=== PATIENT | female | born 1990 | race Caucasian/White ===

== ENCOUNTER 2017-02-22 21:24 | Emergency (ER) | payer OTHER ==
[~2017-02-22] VITALS: Ht 160 cm; Wt 99.8 kg
[~2017-02-22 21:24] MED LIST: MEDR150V IM
[2017-02-22 21:39] LABS: BILIRUBIN,URINE NEGATIVE (NEG); GLUCOSE,URINE NEGATIVE (NEG); NITRITE,URINE NEGATIVE (NEG); PH,URINE 5.5; PROTEIN,URINE NEGATIVE (NEG-TRACE)
[2017-02-22] MEDS ORDERED: 0.9 % SODIUM CHLORIDE 10 ML DISP.SYRIN. IV PRN (21:45)
[2017-02-22 21:47] LABS: BACTERIA,URINE FEW /HPF (0-FEW); RBC,URINE 0 /HPF (0-2); SQUAMOUS EPITHELIAL CELL,UR FEW /LPF; WBC,URINE >40 /HPF (0-4)
[2017-02-22 21:49] LABS: BASO % 0 % (0-3); EOS % 1 % (0-3); HEMATOCRIT 44.2 % (36.0-47.0); HEMOGLOBIN 15.2 g/dL (12.0-15.5); LYMPH # 2.3 x10^3/uL (1.0-4.8); LYMPH % 19 % (24-48); MEAN CORPUSCULAR HEMOGLOBIN 30 pg (25-35); MEAN CORPUSCULAR HGB CONC 34 g/dL (31-37); MEAN CORPUSCULAR VOLUME 86 fL (79-100); MONO % 7 % (0-9); NEUT % 73 % (31-73); PLATELET COUNT 361 x10^3/uL (140-400); RED BLOOD COUNT 5.13 x10^6/uL (3.50-5.40); RED CELL DISTRIBUTION WIDTH 13.7 % (11.5-14.5); WHITE BLOOD COUNT 12.3 x10^3/uL (4.0-11.0)
[2017-02-22] MEDS ORDERED: IV NORMAL SALINE 1000ML BAG 1,000 ML IV SCH (22:00)
--- NOTE | 2017-02-22 22:00 | PHYS DOC ---
Past Medical History Past Medical History: Constipation, Other Additional Past Medical Histor: kidney stone, internal hemroids Past Surgical History: Other Additional Past Surgical Histo: kidney stone removal Alcohol Use: None Drug Use: None Adult General Chief Complaint Chief Complaint: ABDOMINAL PAIN HPI HPI Patient is a 26 year old who presents with L sided abdominal pain and L flank pain with urinary urgency. Pt states started yesterday with urgency and mild flank pain then today pain front of abdomen. Pt denies dysuria or F/C Pt states pain similar to previous kidney stone pain. Pain started today at approx 6pm with waxing,waning feeling. started at 7/10 and now 4/10. Last kidney stone was on R and last episode was approx 3-4 yrs ago and had to have lithotripsy. Mild vaginal discharge . No N/V and last BM was today, no blood no melena Pt states last menstural period was apporx 2 years ago when was on Depo abut no Depo for past 4 months. Review of Systems Review of Systems Constitutional: Denies fever or chills Eyes: Denies change in visual acuity, redness, or eye pain HENT: Denies nasal congestion or sore throat Respiratory: Denies cough or shortness of breath Cardiovascular: No additional information not addressed in HPI GI: +abdominal pain, no nausea, vomiting, bloody stools or diarrhea [] : Denies dysuria or hematuria but having urinary urgency Musculoskeletal: Denies back pain or joint pain Integument: Denies rash or skin lesions Neurologic: Denies headache, focal weakness or sensory changes Current Medications Current Medications Current Medications Medications (Trade) Dose Ordered Sig/Cheo Start Time Stop Time Status Last Admin Dose Admin Ceftriaxone Sodium 1 gm/ Sodium Chloride 50 ml @ 100 mls/hr Q24H 02/23/17 22:00 02/23/17 22:00 DC Ceftriaxone Sodium 50 ml @ 100 mls/hr 1X ONCE 02/22/17 22:30 02/22/17 22:59 DC 02/22/17 22:38 100 MLS/HR Info (Do NOT chart on this entry -- for MONITORING) 1 each PRN DAILY PRN 02/22/17 22:30 02/23/17 01:10 DC Iohexol (Omnipaque 300 Mg/ml) 75 ml 1X ONCE 02/22/17 23:00 02/22/17 23:01 DC 02/22/17 22:43 75 ML Sodium Chloride (Normal Saline Flush) 10 ml QSHIFT PRN 02/22/17 21:45 02/23/17 01:10 DC Allergies Allergies Allergies Coded Allergies Type Severity Reaction Last Updated Verified ibuprofen Allergy Intermediate Swelling 03/14/14 Yes Physical Exam Physical Exam Constitutional: Well developed, well nourished, no acute distress, non-toxic appearance. HENT: Normocephalic, atraumatic, bilateral external ears normal, oropharynx moist, no oral exudates, nose normal. Eyes: PERRL, EOMI, conjunctiva normal, no discharge. Neck: Normal range of motion, no tenderness, supple, no stridor. Cardiovascular:Heart rate regular rhythm, no murmur Lungs & Thorax: Bilateral breath sounds clear to auscultation Abdomen: Bowel sounds normal, soft, tender LLQ, suprapubic and mild RLQ, no guarding no rebound, no masses, no pulsatile masses. Skin: Warm, dry, no erythema, no rash. Back: No tenderness, no CVA tenderness. Extremities: No tenderness, no cyanosis, no clubbing, ROM intact, no edema. Pelvic exam--normal external vaginal area, no bleeding minimal vaginal discharge , os closed, bimanual no CMT, no adenexal tenderness or masses palpated Current Patient Data Vital Signs Vital Signs Date Time Temp Pulse Resp B/P (MAP) Pulse Ox O2 Delivery O2 Flow Rate FiO2 02/23/17 00:30 94 107/53 (71) 99 Room Air 02/22/17 22:52 16 02/22/17 21:30 99.1 99.1 Lab Values Laboratory Tests Test 02/22/17 20:40 02/22/17 21:28 02/22/17 21:38 02/22/17 22:07 POC Urine HCG, Qualitative Hcg negative (Negative) Urine Collection Type Void Urine Color Yellow Urine Clarity Clear Urine pH 5.5 Urine Specific [place] >=1.030 Urine Protein Negative mg/dL (NEG-TRACE) Urine Glucose (UA) Negative mg/dL (NEG) Urine Ketones (Stick) Negative mg/dL (NEG) Urine Blood Moderate (NEG) Urine Nitrite Negative (NEG) Urine Bilirubin Negative (NEG) Urine Urobilinogen Dipstick 1.0 mg/dL (0.2 mg/dL) Urine Leukocyte Esterase Moderate (NEG) Urine RBC 0 /HPF (0-2) Urine WBC >40 /HPF (0-4) Urine Squamous Epithelial Cells Few /LPF Urine Bacteria Few /HPF (0-FEW) Urine Hyaline Casts Occasional /HPF Urine Mucus Mod /LPF White Blood Count 12.3 x10^3/uL (4.0-11.0) H Red Blood Count 5.13 x10^6/uL (3.50-5.40) Hemoglobin 15.2 g/dL (12.0-15.5) Hematocrit 44.2 % (36.0-47.0) Mean Corpuscular Volume 86 fL (79-100) Mean Corpuscular Hemoglobin 30 pg (25-35) Mean Corpuscular Hemoglobin Concent 34 g/dL (31-37) Red Cell Distribution Width 13.7 % (11.5-14.5) Platelet Count 361 x10^3/uL (140-400) Neutrophils (%) (Auto) 73 % (31-73) Lymphocytes (%) (Auto) 19 % (24-48) L Monocytes (%) (Auto) 7 % (0-9) Eosinophils (%) (Auto) 1 % (0-3) Basophils (%) (Auto) 0 % (0-3) Neutrophils # (Auto) 8.9 x10^3uL (1.8-7.7) H Lymphocytes # (Auto) 2.3 x10^3/uL (1.0-4.8) Monocytes # (Auto) 0.9 x10^3/uL (0.0-1.1) Eosinophils # (Auto) 0.1 x10^3/uL (0.0-0.7) Basophils # (Auto) 0.0 x10^3/uL (0.0-0.2) Sodium Level 142 mmol/L (136-145) Potassium Level 3.8 mmol/L (3.5-5.1) Chloride Level 106 mmol/L (98-107) Carbon Dioxide Level 25 mmol/L (21-32) Anion Gap 11 (6-14) Blood Urea Nitrogen 13 mg/dL (7-20) Creatinine 0.9 mg/dL (0.6-1.0) Estimated GFR (Cockcroft-Gault) 76.9 BUN/Creatinine Ratio 14 (6-20) Glucose Level 86 mg/dL (70-99) Calcium Level 9.5 mg/dL (8.5-10.1) Total Bilirubin 0.2 mg/dL (0.2-1.0) Aspartate Amino Transferase (AST) 27 U/L (15-37) Alanine Aminotransferase (ALT) 34 U/L (14-59) Alkaline Phosphatase 71 U/L (46-116) Total Protein 8.0 g/dL (6.4-8.2) Albumin 4.0 g/dL (3.4-5.0) Albumin/Globulin Ratio 1.0 (1.0-1.7) Lipase 204 U/L (73-393) Chlamydia DNA Probe Negative (Negative) Neisseria gonorrhoeae DNA Probe Negative (Negative) Laboratory Tests 02/22/17 21:38 Laboratory Tests 02/22/17 21:38 Microbiology 02/22/17 Urine Culture - Preliminary, Resulted 02/22/17 Urine Culture Result 1 (KARLY) - Preliminary, Resulted EKG EKG [] Radiology/Procedures Radiology/Procedures PATIENT: PEGGY HALE ACCOUNT: [id number] : 1990 LOCATION: ER AGE: 26 SEX: F EXAM STATUS: REG ER ORD. PHYSICIAN: CARY BEVERLY MD REASON: abdominal pain L mid and L flank PROCEDURE: CT ABD PELV W/ IV CONTRST ONLY CT SCAN OF THE ABDOMEN AND PELVIS WITH IV CONTRAST. History: Left-sided abdominal and flank pain worsening since yesterday Comparison:None. Procedure: Contiguous axial images of the abdomen and pelvis were performed after the administration of 75 cc of Omnipaque 300 IV contrast and without oral contrast. CT Abdomen with contrast: Findings: Liver: Unremarkable Spleen: Unremarkable Pancreas: Unremarkable Adrenal Glands: Unremarkable Kidneys: Unremarkable There are multiple small mesenteric lymph nodes in the right lower quadrant. There is no free air. There is no free fluid. Impression: No acute findings. End Impression CT Pelvis with Contrast: Findings: The urinary bladder is collapsed and not well evaluated. There is apparent moderate wall thickening. There is no free fluid. There is no lymphadenopathy. The appendix is normal. Impression: 1. Moderate wall thickening of the bladder could be nondistention or cystitis. 2. Mild mesenteric lymphadenopathy in the right lower quadrant could be secondary to lymphadenitis. PQRS Compliance Statement: One or more of the following individualized dose reduction techniques were utilized for this examination: 1. Automated exposure control 2. Adjustment of the mA and/or kV according to patient size 3. Use of iterative reconstruction technique Electronically signed by: Rm Carter III, MD (02/22/2017 11:15 PM) [facility] DICTATED and SIGNED BY: RM CARTER III, MD DATE: 02/22/17 8627 CC: CARY BEVERLY MD; TITO MAR APRN ~ [] Course & Med Decision Making Course & Med Decision Making Pertinent Labs and Imaging studies reviewed. (See chart for details) CT --normal appendix and no stone or hydro, thickened bladder wall consistent with clinical UTI Discussed findings with pt and need for antibiotic and close follow up Pt received 1 gm IV rocephin, no vomiting Dragon Disclaimer Dragon Disclaimer This electronic medical record was generated, in whole or in part, using a voice recognition dictation system. Departure Departure Impression: Primary Impression: UTI (urinary tract infection) Additional Impression: Abdominal pain Disposition: 01 HOME, SELF-CARE Condition: STABLE Referrals: TITO MAR APRN (PCP) Problem Qualifiers Primary Impression: UTI (urinary tract infection) Encounter type: initial encounter Additional Impression: Abdominal pain Abdominal location: lower abdomen, unspecified Qualified Codes: R10.30 - Lower abdominal pain, unspecified CARY BEVERLY MD Feb 22, 2017 22:00
[2017-02-22 22:03] LABS: CALCIUM 9.5 mg/dL (8.5-10.1); CREATININE 0.9 mg/dL (0.6-1.0); GFR 76.9; POTASSIUM 3.8 mmol/L (3.5-5.1)
[2017-02-22 22:09] LABS: TOTAL BILIRUBIN 0.2 mg/dL (0.2-1.0)
[2017-02-22] MEDS ORDERED: CONTRAST GIVEN MC PRN (22:30)
[2017-02-22] MEDS ORDERED: IOHEXOL 300 MG/ML 75 ML VIAL IV ONE (23:00)
--- NOTE | 2017-02-22 23:18 | RAD ---
CT SCAN OF THE ABDOMEN AND PELVIS WITH IV CONTRAST. History: Left-sided abdominal and flank pain worsening since yesterday Comparison:None. Procedure: Contiguous axial images of the abdomen and pelvis were performed after the administration of 75 cc of Omnipaque 300 IV contrast and without oral contrast. CT Abdomen with contrast: Findings: Liver: Unremarkable Spleen: Unremarkable Pancreas: Unremarkable Adrenal Glands: Unremarkable Kidneys: Unremarkable There are multiple small mesenteric lymph nodes in the right lower quadrant. There is no free air. There is no free fluid. Impression: No acute findings. End Impression CT Pelvis with Contrast: Findings: The urinary bladder is collapsed and not well evaluated. There is apparent moderate wall thickening. There is no free fluid. There is no lymphadenopathy. The appendix is normal. Impression: 1. Moderate wall thickening of the bladder could be nondistention or cystitis. 2. Mild mesenteric lymphadenopathy in the right lower quadrant could be secondary to lymphadenitis. PQRS Compliance Statement: One or more of the following individualized dose reduction techniques were utilized for this examination: 1. Automated exposure control 2. Adjustment of the mA and/or kV according to patient size 3. Use of iterative reconstruction technique Electronically signed by: Luc Murphy III, MD (02/22/2017 11:15 PM) [facility]
[2017-02-23 00:30] VITALS: BP 107/53
--- NOTE | 2017-02-27 10:58 | VNOTE ---
CALL BACK NOTE CALL BACK Microbiology 02/22/17 Urine Culture - Final, Complete 02/22/17 Urine Culture Result 1 (KARLY) - Final, Complete 02/22/17 Antimicrobic Susceptibility - Final, Complete Patient has a positive urine culture, she was discharged on undocumented antibiotics, tried to contact patient to see which medications she was put on considering she is resistant to multiple antibiotics. Left her a ZEKE LEDEZMA APRN Feb 27, 2017 10:58
== END 2017-02-23 00:45 | disposition home or self-care (01) ==
LOC: ER 21:24
DX: N39.0 Urinary tract infection, site not specified (principal); Z87.442 Personal history of urinary calculi; Z88.6 Allergy status to analgesic agent
CPT/HCPCS: 36415; 74177; 80053; 81001; 81025; 83690; 85027; 87086; 87491; 87591; 96361; 96365; 99285; J0690; J7030; Q9967; 87186

== ENCOUNTER 2017-03-19 00:41 | Emergency (ER) | payer OTHER ==
[~2017-03-19] VITALS: Ht 160 cm; Wt 99.8 kg
[2017-03-19 02:00] LABS: BILIRUBIN,URINE NEGATIVE (NEG); GLUCOSE,URINE NEGATIVE (NEG); NITRITE,URINE NEGATIVE (NEG); PROTEIN,URINE NEGATIVE (NEG-TRACE)
[2017-03-19 02:19] LABS: BACTERIA,URINE MANY /HPF (0-FEW); RBC,URINE OCC /HPF (0-2); SQUAMOUS EPITHELIAL CELL,UR MANY /LPF; WBC,URINE OCC /HPF (0-4)
[2017-03-19 02:28] LABS: BASO % 0 % (0-3); EOS % 1 % (0-3); HEMATOCRIT 41.3 % (36.0-47.0); HEMOGLOBIN 14.2 g/dL (12.0-15.5); LYMPH # 2.1 x10^3/uL (1.0-4.8); LYMPH % 19 % (24-48); MEAN CORPUSCULAR HEMOGLOBIN 29 pg (25-35); MEAN CORPUSCULAR HGB CONC 34 g/dL (31-37); MEAN CORPUSCULAR VOLUME 85 fL (79-100); MONO % 8 % (0-9); NEUT % 72 % (31-73); PLATELET COUNT 342 x10^3/uL (140-400); RED BLOOD COUNT 4.86 x10^6/uL (3.50-5.40); RED CELL DISTRIBUTION WIDTH 13.8 % (11.5-14.5); WHITE BLOOD COUNT 11.5 x10^3/uL (4.0-11.0)
[2017-03-19 02:35] LABS: NEG OBC UR NEG; POS OBC UR POS
[2017-03-19 02:43] LABS: CALCIUM 8.7 mg/dL (8.5-10.1); CREATININE 0.7 mg/dL (0.6-1.0); GFR 102.8; POTASSIUM 3.8 mmol/L (3.5-5.1)
[2017-03-19 02:48] LABS: ALBUMIN 3.9 g/dL (3.4-5.0); TOTAL BILIRUBIN 0.4 mg/dL (0.2-1.0); TOTAL PROTEIN 7.9 g/dL (6.4-8.2)
[2017-03-19 02:55] VITALS: BP 115/80
--- NOTE | 2017-03-19 03:01 | PHYS DOC ---
Past Medical History Past Medical History: Constipation, Other Additional Past Medical Histor: kidney stone, internal hemroids Past Surgical History: Other Additional Past Surgical Histo: kidney stone removal Alcohol Use: None Drug Use: None Adult General Chief Complaint Chief Complaint: ABDOMINAL PAIN HPI HPI Patient is a 26 year old female who presents here today complaining of right- sided abdominal pain. Patient reports pain is there for approximately 2 days now. Patient has any fevers shakes chills nausea vomiting diarrhea dysuria frequency urgency. Patient reports the pain is intermittent. Patient reports that her last by mouth intake was prior to arrival she ate a rice crispy treat. Patient has not had diarrhea but she does have a good appetite. Patient reports she's been treated for urinary tract infection for approximately 1 month now. Patient is on her third round of antibiotics. Patient started taking ciprofloxacin on March 06. Patient's last menstrual period was approximately 2 years ago secondary to her Depo-Medrol shot. Patient reports that she recently stopped her Depakote which she thinks might be contributing to her abdominal pain. Patient's last bowel movement was earlier today. Patient denies any history of hypertension diabetes liver longer kidney problems. Patient had no abdominal surgeries. Patient does not smoke or drink. Patient is allergic to ibuprofen. Review of systems: Constitutional: Denies fever or chills Eyes: Denies change in visual acuity, redness, or eye pain HENT: Denies nasal congestion or sore throat All other review systems are negative except as documented in the history of present illness portion. Physical exam: Constitutional: Well developed, well nourished, no acute distress, non-toxic appearance. HENT: Normocephalic, atraumatic, bilateral external ears normal, Eyes: EOMI, conjunctiva normal, no discharge. Neck: Normal range of motion, no tenderness, supple, no stridor. Cardiovascular: Regular rate Lungs & Thorax: Bilateral breath sounds clear to auscultation no wheezing rales or rhonchi Abdomen: Bowel sounds normal, soft, no tenderness, soft and nontender no rebound or guarding. No tenderness at McBurney's point. No tenderness at Elias sign. Mild tenderness to palpation in her midepigastric region. Skin: Warm, dry, no erythema, no rash. Back: No tenderness, no CVA tenderness. Extremities: ROM intact, no edema. Neurologic: Alert and oriented X 3, normal motor function, normal sensory function, no focal deficits noted. Psychologic: Affect normal, judgement normal, mood normal. Patient's physical exam the ER significant for tenderness to palpation greatest in her midepigastric region. Patient is not exhibiting any signs or symptoms of be consistent with an acute surgical abdomen. Patient's labs in ER and we'll been unremarkable. Patient's CBC chemistry and lipase LFTs were all within normal limits. Patient appears to have early urinary tract infection clearing up. Assessment and plan 26-year-old female who presents here today complaining of abdominal pain. Patient's presentation is not consistent with an acute surgical abdomen. Patient 's ER workup has been unremarkable. Patient be discharged home with instructions to follow-up with her primary care physician for further evaluation and management of her discomfort. Strict return precautions were discussed with the patient. Review of Systems Review of Systems Allergies Allergies Allergies Coded Allergies Type Severity Reaction Last Updated Verified ibuprofen Allergy Intermediate Swelling 03/14/14 Yes Current Patient Data Vital Signs Vital Signs Date Time Temp Pulse Resp B/P (MAP) Pulse Ox O2 Delivery O2 Flow Rate FiO2 03/19/17 01:47 98.8 82 18 159/79 (105) Room Air 97.0 98.8 Lab Values Laboratory Tests Test 03/19/17 01:51 03/19/17 02:15 Urine Collection Type Unknown Urine Color Yellow Urine Clarity Clear Urine pH 6.0 Urine Specific [place] >=1.030 Urine Protein Negative mg/dL (NEG-TRACE) Urine Glucose (UA) Negative mg/dL (NEG) Urine Ketones (Stick) Negative mg/dL (NEG) Urine Blood Negative (NEG) Urine Nitrite Negative (NEG) Urine Bilirubin Negative (NEG) Urine Urobilinogen Dipstick 1.0 mg/dL (0.2 mg/dL) Urine Leukocyte Esterase Negative (NEG) Urine RBC Occ /HPF (0-2) Urine WBC Occ /HPF (0-4) Urine Squamous Epithelial Cells Many /LPF Urine Bacteria Many /HPF (0-FEW) Urine Mucus Marked /LPF Urine Test Negative (NEG) White Blood Count 11.5 x10^3/uL (4.0-11.0) H Red Blood Count 4.86 x10^6/uL (3.50-5.40) Hemoglobin 14.2 g/dL (12.0-15.5) Hematocrit 41.3 % (36.0-47.0) Mean Corpuscular Volume 85 fL (79-100) Mean Corpuscular Hemoglobin 29 pg (25-35) Mean Corpuscular Hemoglobin Concent 34 g/dL (31-37) Red Cell Distribution Width 13.8 % (11.5-14.5) Platelet Count 342 x10^3/uL (140-400) Neutrophils (%) (Auto) 72 % (31-73) Lymphocytes (%) (Auto) 19 % (24-48) L Monocytes (%) (Auto) 8 % (0-9) Eosinophils (%) (Auto) 1 % (0-3) Basophils (%) (Auto) 0 % (0-3) Neutrophils # (Auto) 8.3 x10^3uL (1.8-7.7) H Lymphocytes # (Auto) 2.1 x10^3/uL (1.0-4.8) Monocytes # (Auto) 0.9 x10^3/uL (0.0-1.1) Eosinophils # (Auto) 0.1 x10^3/uL (0.0-0.7) Basophils # (Auto) 0.0 x10^3/uL (0.0-0.2) Sodium Level 142 mmol/L (136-145) Potassium Level 3.8 mmol/L (3.5-5.1) Chloride Level 108 mmol/L (98-107) H Carbon Dioxide Level 25 mmol/L (21-32) Anion Gap 9 (6-14) Blood Urea Nitrogen 15 mg/dL (7-20) Creatinine 0.7 mg/dL (0.6-1.0) Estimated GFR (Cockcroft-Gault) 102.8 BUN/Creatinine Ratio 21 (6-20) H Glucose Level 82 mg/dL (70-99) Calcium Level 8.7 mg/dL (8.5-10.1) Total Bilirubin 0.4 mg/dL (0.2-1.0) Aspartate Amino Transferase (AST) 23 U/L (15-37) Alanine Aminotransferase (ALT) 31 U/L (14-59) Alkaline Phosphatase 63 U/L (46-116) Total Protein 7.9 g/dL (6.4-8.2) Albumin 3.9 g/dL (3.4-5.0) Albumin/Globulin Ratio 1.0 (1.0-1.7) Lipase 219 U/L (73-393) Laboratory Tests 03/19/17 02:15 Laboratory Tests 03/19/17 02:15 EKG EKG [] Radiology/Procedures Radiology/Procedures [] Course & Med Decision Making Course & Med Decision Making Pertinent Labs and Imaging studies reviewed. (See chart for details) [] Dragon Disclaimer Dragon Disclaimer This electronic medical record was generated, in whole or in part, using a voice recognition dictation system. Departure Departure Impression: Primary Impression: Abdominal pain Disposition: HOME, SELF-CARE Condition: IMPROVED Referrals: TITO MAR APRN (PCP) Patient Instructions: Abdominal Pain (Nonspecific) Additional Instructions: Your evaluated in the ER today for abdominal pain. No serious cause of your abdominal pain has been found in the emergency department. You'll need to follow -up with her family doctor for further evaluation of your pain. This might require further tests and referrals are unobtainable here in the ER. CARMELLA FORREST MD Mar 19, 2017 03:01
== END 2017-03-19 03:07 | disposition home or self-care (01) ==
LOC: ER 00:41
DX: R10.13 Epigastric pain (principal); Z88.6 Allergy status to analgesic agent; Z87.442 Personal history of urinary calculi
CPT/HCPCS: 36415; 80053; 81001; 81025; 83690; 85025; 87086; 99284

== ENCOUNTER → 2017-03-30 | Outpatient (CLI) | payer OTHER ==
[2017-03-19 02:55] VITALS: BP 115/80
--- NOTE | 2017-03-30 08:19 | RAD ---
Ultrasound pelvis Indication: Pelvic pain Technique: Transabdominal and transvaginal ultrasound pelvis performed. Comparison: Previous CT abdomen/pelvis from 02/22/2017 Findings: The uterus measures 7.7 x 2.2 x 4.2 cm and is anteverted. Endometrial stripe measures 4 mm and is within normal limits. The right ovary measures 3.3 x 1.3 x 2.7 cm with evidence of blood flow on color Doppler and spectral waveform images. Left ovary not visualized. No free fluid in the pelvis. Impression: 1. No fibroids. 2. Right ovary within normal limits. Left ovary not visualized. 3. No free pelvic fluid.
== END | disposition home or self-care (01) ==
LOC: US 06:29
PROVIDERS: ATTEND Physician Assistant Medical
DX: R10.2 Pelvic and perineal pain (principal)
CPT/HCPCS: 76830; 76856